=== PATIENT | male | born 1960 | race Caucasian/White ===

== ENCOUNTER 2017-10-14 12:01 | Emergency (ER) | payer BC, OTHER ==
[~2017-10-14] VITALS: Ht 175.3 cm; Wt 91.0 kg
[2017-10-14 12:07] VITALS: BP 138/97
[2017-10-14] MEDS ORDERED: LOSA100T14 PO (12:11)
[2017-10-14] MEDS ORDERED: TETANUS, DIPHTHERIA, PERTUSSIS VAC/PF 0.5ML (>7YR OLD) IM ONE (13:15)
== END 2017-10-14 14:21 | disposition home or self-care (01) ==
LOC: ER 12:54
DX: S61.052A Open bite of left thumb without damage to nail, initial encounter (principal); I10 Essential (primary) hypertension; W64.XXXA Exposure to other animate mechanical forces, initial encounter; Y93.89 Activity, other specified; Y99.8 Other external cause status; Y92.89 Other specified places as the place of occurrence of the external cause
CPT/HCPCS: 90471; 90715; 99283

== ENCOUNTER → 2025-08-08 | Outpatient (CLI) | payer BC ==
[~2025-08-08] MED LIST: LOSA100T33 PO
== END | disposition home or self-care (01) ==
LOC: RAD 12:18
DX: M19.012 Primary osteoarthritis, left shoulder (principal); M75.82 Other shoulder lesions, left shoulder; M25.512 Pain in left shoulder
CPT/HCPCS: 73030

== ENCOUNTER → 2025-08-14 | Outpatient (CLI) | payer BC | END | disposition home or self-care (01) | LOC: MRI 09:56 | DX: S46.212A Strain of muscle, fascia and tendon of other parts of biceps, left arm, initial encounter (principal); M75.122 Complete rotator cuff tear or rupture of left shoulder, not specified as traumatic; M19.012 Primary osteoarthritis, left shoulder; M25.712 Osteophyte, left shoulder; M75.52 Bursitis of left shoulder; M25.512 Pain in left shoulder; M75.22 Bicipital tendinitis, left shoulder; M67.814 Other specified disorders of tendon, left shoulder; M25.812 Other specified joint disorders, left shoulder; X58.XXXA Exposure to other specified factors, initial encounter; Y93.89 Activity, other specified; Y92.89 Other specified places as the place of occurrence of the external cause; Y99.8 Other external cause status | CPT/HCPCS: 73221 ==